=== PATIENT | female | born 1990 | race African-American/Black ===

== ENCOUNTER 2017-07-09 11:37 | Emergency (ER) | payer SELFPAY ==
[2017-07-09 11:42] VITALS: BP 118/70
[2017-07-09] MEDS ORDERED: PENICILLIN G BENZATHINE 1.2 MILLION UNIT/2 ML DISP.SYRIN IM ONE (12:07)
[2017-07-09] MEDS ORDERED: ACETAMINOPHEN 325 MG TABLET PO ONE (12:07)
[2017-07-09] MEDS ORDERED: DEXAMETHASONE 4 MG TABLET PO ONE (12:10)
--- NOTE | 2017-07-09 12:12 | ER Document Report ---
HPI - HPI Patient complains to provider of: Sore throat Onset: Other - Or days Onset/Duration: Persistent Quality of pain: Achy Pain Level: 2 Context: Patient presents complaining of sore throat, fever and body aches. Patient reports fever of 101 at home. Associated Symptoms: Body/muscle aches, Fever, Sore throat Exacerbated by: Denies Relieved by: Denies Similar symptoms previously: Yes Recently seen / treated by doctor: No - ROS ROS below otherwise negative: Yes Systems Reviewed and Negative: Yes All other systems reviewed and negative - CONSTITUTIONAL Constitutional: REPORTS: Fever - intermittent. DENIES: Chills - EENT EENT: REPORTS: Sore Throat. DENIES: Ear Pain, Eye problems - RESPIRATORY Respiratory: REPORTS: Coughing - GASTROINTESTINAL Gastrointestinal: DENIES: Abdominal Pain, Patient vomiting, Black / Bloody Stools - REPRODUCTIVE Reproductive: DENIES: : - MUSCULOSKELETAL Musculoskeletal: DENIES: Back Pain - DERM Skin Color: Normal Skin Problems: None Past Medical History - General Information source: Patient - Social History Smoking Status: Current Every Day Smoker Chew tobacco use (# tins/day): No Smoking Education Provided: Yes Frequency of alcohol use: Social Drug Abuse: None Occupation: [employer] Family History: Reviewed & Not Pertinent Patient has suicidal ideation: No Patient has homicidal ideation: No - Medical History Medical History: Negative Renal/ Medical History: Denies: Hx Peritoneal Dialysis Surgical Hx: Negative Vertical Provider Document - CONSTITUTIONAL Agree With Documented VS: Yes Exam Limitations: No Limitations General Appearance: WD/WN, No Apparent Distress - HEENT HEENT: Atraumatic, Normocephalic, Pharyngeal Exudate, Pharyngeal Tenderness, Pharyngeal Erythema - NECK Neck: Lymphadenopathy-Left, Lymphadenopathy-Right - RESPIRATORY Respiratory: Breath Sounds Normal, No Respiratory Distress, Chest Non-Tender O2 Sat by Pulse Oximetry: 97 - CARDIOVASCULAR Cardiovascular: Regular Rate, Regular Rhythm, No Murmur - BACK Back: Normal Inspection. negative: CVA Tenderness-Right, CVA Tenderness-Left - MUSCULOSKELETAL/EXTREMETIES Musculoskeletal/Extremeties: MAEW - NEURO Level of Consciousness: Awake, Alert, Appropriate Motor/Sensory: No Motor Deficit - DERM Integumentary: Warm, Dry, No Rash Course - Re-evaluation Re-evalutation: 07/09/17 12:11 Pt with symptoms concerning for tonsillitis, we will plan to treat patient and give her good return precautions. Patient stable for discharge. - Vital Signs Vital signs: Temp Pulse Resp BP Pulse Ox 99.7 F 94 18 118/70 97 07/09/17 11:41 07/09/17 11:41 07/09/17 11:41 07/09/17 11:41 07/09/17 11:41 Discharge - Discharge Clinical Impression: Tonsillitis Condition: Stable Disposition: HOME, SELF-CARE Instructions: Antibiotic Shot ([facility]), Corticosteroid Medication ([facility]), Use of Idff-Cbl-Bkdhadm Ibuprofen ([facility]), Tonsillitis ([facility]) Additional Instructions: Return immediately for any new or worsening symptoms Followup with your primary care provider, call tomorrow to make a followup appointment Increase oral fluids and stay well-hydrated Prescriptions: Naproxen [Naprosyn 250 Nmg Tablet] 1 tab PO BID #14 tablet Forms: Smoking Cessation Education, Return to Work
== END 2017-07-09 12:35 | disposition home or self-care (01) ==
LOC: ER 11:37
DX: J03.90 Acute tonsillitis, unspecified (principal); R50.9 Fever, unspecified; M79.1 Myalgia; R05 Cough; F17.200 Nicotine dependence, unspecified, uncomplicated; R59.0 Localized enlarged lymph nodes
CPT/HCPCS: 99282; 96372; J0561

== ENCOUNTER 2017-08-26 02:29 | Emergency (ER) | payer SELFPAY ==
[2017-08-26] MEDS ORDERED: ACETAMINOPHEN 325 MG TABLET PO ONE (04:59)
--- NOTE | 2017-08-26 05:45 | ER Document Report ---
ED ENT - General Chief Complaint: Ear Pain Stated Complaint: EARACHE Time Seen by Provider: 08/26/17 05:11 Mode of Arrival: Ambulatory Information source: Patient TRAVEL OUTSIDE OF THE [place] IN LAST 30 DAYS: No - HPI Patient complains to provider of: Ear problem Onset: Yesterday Notes: The patient is here with complaints of right ear pain. The pain has been present for the last day. She states that she has had some drainage from her ear and has had some decreased hearing from this year. She denies any fevers. She denies any sore throat. She denies any cough. She denies any nausea, vomiting, diarrhea. She denies any difficulty breathing or swallowing. She denies any recent swimming or injuries to the ear and denies taking anything inside the ear. She denies any rash, headache, blurred vision. No numbness, tingling, weakness. Pain is worse with touching the area, nothing makes it better. - Related Data Allergies/Adverse Reactions: No Known Allergies Allergy (Verified 07/09/17 12:02) Past Medical History - Social History Smoking Status: Current Every Day Smoker Frequency of alcohol use: None Family History: Reviewed & Not Pertinent Patient has suicidal ideation: No Patient has homicidal ideation: No Renal/ Medical History: Denies: Hx Peritoneal Dialysis Review of Systems - Review of Systems -: Yes All other systems reviewed and negative Physical Exam - Vital signs Vitals: Temp Pulse Resp BP Pulse Ox 99.0 F 93 16 123/75 97 08/26/17 02:32 08/26/17 02:32 08/26/17 02:32 08/26/17 02:32 08/26/17 02:32 - Notes Notes: GENERAL: alert, cooperative, nontoxic, no distress. HEAD: normocephalic, atraumatic EYES: conjunctiva pink without discharge, no external redness or swelling. EARS: Patient is noted to have swelling to the bilateral ear canals right greater than left with white exudate. Left ear canal is nontender. Right ear is tender with palpation of the tragus and movement of the auricle. There is no redness swelling to the posterior ear. No sign of mastoiditis. Both TMs are pearly ortez without erythema or perforation. NOSE: atraumatic, no external swelling. clear rhinorrhea noted. MOUTH/THROAT: mucous membranes moist and pink, posterior pharynx without erythema, swelling, exudate. No trismus or drooling. NECK: soft, supple, full range of motion, no meningismus. CHEST: no distress, lungs clear and equal throughout. No wheezing, rales, rhonchi. CARDIAC: regular rate and rhythm, no murmur, normal capillary refill, normal pulses. No peripheral edema noted. BACK: full range of motion, no CVA tenderness. EXTREMITIES: full range of motion of all extremities. No redness, no swelling. NEURO: alert and oriented A&O3, no focal deficits, full range of motion of all extremities. PYSCH: appropriate mood, affect. Patient is cooperative. SKIN: pink, warm, dry, no rash. Course - Re-evaluation Re-evalutation: 08/26/17 05:40 Patient is nontoxic appearing with stable vitals. She complains of right ear pain and decreased hearing. The patient is noted to have otitis externa in both ears, but the right is worse than the left. There is no sign of mastoiditis. She has a nonfocal exam otherwise. This point patient has no obvious TM perforation. She will be discharged home on antibiotic/steroid eardrops as well as NSAIDs and pain medication. Follow-up if not improving within the next 3-5 days, sooner for worsening pain, high fever, persistent vomiting, pain behind the ear, or for any further concerns. The patient is noted to have elevated blood pressure during today's emergency department visit. The patient was informed of this finding. The patient was instructed that this may be related to pre-hypertension and requires further evaluation with a primary care provider. The patient has no hypertensive symptoms at this time. The patient's emergency department workup and current diagnosis were explained to the patient and or family. Follow-up instructions were provided. Medications if prescribed were discussed. Instructions for when to return to the emergency department including specific worrisome symptoms were discussed with the patient and/or family. - Vital Signs Vital signs: Temp Pulse Resp BP Pulse Ox 99.0 F 93 16 123/75 97 08/26/17 02:32 08/26/17 02:32 08/26/17 02:32 08/26/17 02:32 08/26/17 02:32 Discharge - Discharge Clinical Impression: Bilateral otitis externa Qualifiers: Otitis externa type: diffuse Chronicity: acute Qualified Code(s): H60.313 - Diffuse otitis externa, bilateral Condition: Stable Disposition: HOME, SELF-CARE Instructions: Use of Ear Drops ([facility]), Oral Narcotic Medication ([facility]), Otitis Externa ([facility]) Additional Instructions: Take medications as prescribed. Keep ear clean and dry. Follow-up if not improving in the next 3-5 days, sooner for worsening pain, high fever, persistent vomiting, significant redness or swelling behind the right ear, or for any further concerns. Your blood pressure was elevated during today's visit. Have this rechecked with your doctor. The medication you were prescribed today may cause drowsiness. Do not drive or operate heavy machinery while taking this medication. Prescriptions: Hydrocodone/Acetaminophen [Joiner 5-325 mg Tablet] 2 tab PO Q6H PRN #15 tab PRN Reason: Naproxen [Naprosyn] 500 mg PO BID #20 tablet Neomy Sulf/Polymyx B Sulf/Hc [Cortisporin Ear Suspension] 4 drop BTH_EAR QID 7 Days #1 bottle Forms: Elevated Blood Pressure, Smoking Cessation Education Referrals: [facility] [Provider Group] - Follow up as needed
[2017-08-26 06:58] VITALS: BP 108/84
== END 2017-08-26 05:59 | disposition home or self-care (01) ==
LOC: ER 02:29
DX: H60.313 Diffuse otitis externa, bilateral (principal); H92.01 Otalgia, right ear; F17.200 Nicotine dependence, unspecified, uncomplicated; R03.0 Elevated blood-pressure reading, without diagnosis of hypertension
CPT/HCPCS: 99282